=== PATIENT | male | born 1985 | race Caucasian/White ===

== ENCOUNTER 2017-06-16 17:09 | Emergency (ER) | END 2017-06-16 17:55 | disposition home or self-care (01) ==

== ENCOUNTER 2017-08-27 22:40 | Emergency (ER) | END 2017-08-28 04:26 | disposition home or self-care (01) ==

== ENCOUNTER 2018-06-01 11:07 | Emergency (ER) | payer MEDICAID ==
[~2018-06-01] VITALS: Wt 90.8 kg
[~2018-06-01 11:07] MED LIST: CEPH-443 PO; CETI10CA PO; CIPR500T4 PO; IBUP-1542 PO; PRED20TA PO
[2018-06-01 11:15] VITALS: BP 138/66; PULSE 87; RESP 20
[2018-06-01] MEDS ORDERED: SULF15DR19 LEFT EYE (11:46)
[2018-06-01] MEDS ORDERED: DOXY100T20 PO (11:46)
--- NOTE | 2018-06-01 11:51 | ERD ---
ER Documentation Chief Complaint Chief Complaint LEFT EYE UPPER LID SWELLING X2DAYS HPI 33-year-old male presents with left upper eyelid swelling for last 2 days. Denies any history of trauma. Had mild cough and cold. Denies any visual changes, pain, discharge. ROS All systems reviewed and are negative except as per history of present illness. Medications Home Meds Active Scripts Doxycycline Hyclate* (Doxycycline Hyclate*) 100 Mg Tablet.dr, 100 MG PO BID for 7 Days, TAB Prov:SYLWIA BROWN MD 06/01/18 Sulfacetamide Sodium* (Bleph-10*) 10%-15 Ml Opht Drops, 1 DROP LEFT EYE QID for 7 Days, #1 EA Prov:SYLWIA BROWN MD 06/01/18 Ibuprofen* (Motrin*) 600 Mg Tab, 600 MG PO Q6, #30 TAB Prov:JOSE MARIA,MIKEL 08/28/17 Ciprofloxacin Hcl* (Ciprofloxacin Hcl*) 500 Mg Tablet, 500 MG PO BID for 10 Days, TAB Prov:JOSE MARIA,MIKEL 08/28/17 Cephalexin* (Keflex*) 500 Mg Capsule, 500 MG PO TID for 10 Days, CAP Prov:RAFI FERGUSON PA-C 06/16/17 Prednisone* (Prednisone*) 20 Mg Tab, 40 MG PO DAILY for 4 Days, TAB Prov:RAFI FERGUSONC 06/16/17 Cetirizine Hcl* (Zyrtec*) 10 Mg Capsule, 10 MG PO DAILY, #14 TAB.CHEW Prov:RAFI FERGUSON PA-C 06/16/17 Allergies Allergies: Coded Allergies: No Known Allergy (Unverified , 08/28/17) PMhx/Soc Hx Alcohol Use: No Hx Substance Use: No Hx Tobacco Use: No FmHx Family History: No diabetes, No coronary disease, No other Physical Exam Vitals Vital Signs Date Temp Pulse Resp B/P (MAP) Pulse Ox O2 O2 Flow FiO2 Time Delivery Rate 06/01/18 97.6 87 20 138/66 99 11:15 (90) Physical Exam Const: No acute distress Head: Atraumatic Eyes: Normal Conjunctiva. Eyes Vin and extraocular movements intact. Anterior chambers normal. Mild swelling of the left upper eyelid. Slight redness. No orbital swelling or proptosis or abnormal abdomens. ENT: Normal External Ears, Nose and Mouth. Neck: Full range of motion. No meningismus. Resp: Clear to auscultation bilaterally Cardio: Regular rate and rhythm, no murmurs Abd: Soft, non tender, non distended. Normal bowel sounds Skin: No petechiae or rashes Back: No midline or flank tenderness Ext: No cyanosis, or edema Neur: Awake and alert Psych: Normal Mood and Affect Procedures/MDM Patient presents with a left upper eyelid [place]. Current signs or symptoms do not suggest orbital or preseptal cellulitis. There is no involvement of the globe or visual changes. We will treat with warm compresses, Bleph-10, doxycycline given the degree of redness, primary care and follow-up with ophthalmology for persistent symptoms. Patient has no signs or symptoms of visual changes, visual field deficits. There are no signs or symptoms to suggest orbital cellulitis, retinal detachment, optic neuritis, retinal artery ischemia, dendritic lesions, ulcers, threats to vision or additional eye emergencies. Doubt acute glaucoma. Patient will be discharged home with recommendations for primary care and ophthalmology follow-up within the next 1-2 days. They should otherwise return to the ER for persistent or worsening symptoms. Departure Diagnosis: Primary Impression: Hordeolum Hordeolum type: internum Laterality: left Eyelid: upper Qualified Codes: H00.024 - Hordeolum internum left upper eyelid Condition: Stable Patient Instructions: Sty Additional Instructions: pone toalla con agua tibia. Cheque otro vez con herring doctor primario en el proximo sanches or regresa para mas o nueva simptomas- emiliano dueñas, debi, nueva simptomas. SYLWIA BROWN MD Jun 01, 2018 11:51
== END 2018-06-01 12:00 | disposition home or self-care (01) ==
LOC: FTE 11:07
DX: H00.024 Hordeolum internum left upper eyelid (principal)
CPT/HCPCS: 99283